=== PATIENT | male | born 1970 | race Caucasian/White ===

== ENCOUNTER 2016-09-15 10:31 | Outpatient (CLI) | payer BC ==
[2016-09-15 13:59] LABS: BASOPHILS % (AUTO) 0.6 %; EOSINOPHILS # (AUTO) 0.1 10^3/uL (0.0-0.7); EOSINOPHILS % (AUTO) 1.5 %; HCT - HEMATOCRIT 40.2 % (42.0-52.0); HGB - HEMOGLOBIN 13.7 g/dL (14.0-18.0); LYMPHOCYTES # (AUTO) 1.3 10^3/uL (1.5-3.5); LYMPHOCYTES % (AUTO) 25.3 %; MEAN CORPUSCULAR HEMOGLOBIN 28.1 pg (27.0-31.0); MEAN CORPUSCULAR HGB CONC 34.1 g/dL (32.0-36.0); MEAN CORPUSCULAR VOLUME 82.4 fL (80.0-94.0); MEAN PLATELET VOLUME 8.7 fL (7.4-11.4); MONOCYTES # (AUTO) 0.3 10^3/uL (0.0-1.0); MONOCYTES % (AUTO) 6.1 %; NEUTROPHILS # (AUTO) 3.4 10^3/uL (1.5-6.6); NEUTROPHILS % (AUTO) 66.5 %; NUCLEATED RED BLOOD CELLS AUTO 0.1 /100WBC; RED BLOOD COUNT 4.88 10^6/uL (4.70-6.10); RED CELL DISTRIBUTION WIDTH 14.2 % (12.0-15.0); UNCORRECTED WHITE BLOOD COUNT 5.1 x10^3/uL; WHITE BLOOD COUNT 5.1 x10^3/uL (4.8-10.8)
[2016-09-15 14:13] LABS: ALBUMIN/GLOBULIN RATIO 1.6 (1.0-2.2); BILIRUBIN,TOTAL 0.7 mg/dL (0.2-1.0); CALCIUM 9.3 mg/dL (8.5-10.3); CREATININE 1.1 mg/dL (0.6-1.2); POTASSIUM 4.1 mmol/L (3.5-5.0); TOTAL PROTEIN 7.7 g/dL (6.7-8.2)
== END 2016-09-15 10:32 | disposition home or self-care (01) ==
LOC: LAB.WCP 10:31
PROVIDERS: ATTEND Family Medicine
DX: N52.9 Male erectile dysfunction, unspecified (principal); E04.1 Nontoxic single thyroid nodule; R94.5 Abnormal results of liver function studies; I10 Essential (primary) hypertension
CPT/HCPCS: 36415; 80053; 84403; 84443; 85025

== ENCOUNTER 2020-02-09 23:50 | Outpatient (CLI) | payer BC | END 2020-02-09 23:51 | disposition critical access hospital (66) | LOC: EMS 23:50 | PROVIDERS: ATTEND Surgery | DX: R41.82 Altered mental status, unspecified (principal) | CPT/HCPCS: A0425; A0429 ==

== ENCOUNTER 2020-02-10 00:08 | Emergency (ER) | payer BC ==
--- NOTE | 2020-02-10 00:13 | ED Physician Documentation ---
PD HPI ALTERED MENTAL STATUS - Stated complaint Stated Complaint: AMS/ INGESTION - History obtained from History obtained from: Patient, Family ( (in ED in adjacent bed, also registered as patient for similar c/o)), EMS - History of Present Illness Timing - onset: Today Timing - details: Gradual onset Similar symptoms before: Has not had sx before Recently seen: Not recently seen - Additional information Additional information: BIBA for AMS. he is unable to provide any HPI or contribute to ROS due to AMS. per medic report and , patient and spouse used marijuana tonight, they have used before but this was a different type/concentration than they were used to. after a second dose, patient became increasingly drowsy. he is obtunded on my exam Review of Systems Unable to obtain: AMS PD PAST MEDICAL HISTORY - Past Medical History Past Medical History: No - Past Surgical History Past Surgical History: No - Present Medications Home Medications: Ambulatory Orders Medication Instructions Recorded Confirmed Sertraline HCl 100 mg PO DAILY 02/10/20 02/10/20 - Allergies Allergies/Adverse Reactions: Allergies Allergy/AdvReac Type Severity Reaction Status Date / Time No Known Drug Allergies Allergy Verified 02/10/20 00:22 - Social History Substance Use and Type: Marijuana PD ED PE NORMAL - Vitals Vital signs reviewed: Yes - General General: No acute distress, Well developed/nourished, Other (asleep, responds to pain. ) - HEENT HEENT: PERRL - Cardiac Cardiac: No murmur - Respiratory Respiratory: No respiratory distress, Clear bilaterally - Abdomen Abdomen: Soft, Non distended - Derm Derm: Normal color, Warm and dry PD ED PE EXPANDED - Cardiac Cardiac: Tachy, Regular Rhythm Results - Vitals Vitals: Oxygen O2 Source Room air PD MEDICAL DECISION MAKING - ED course Complexity details: re-evaluated patient, considered differential, d/w patient, d/w family ED course: after a few hours of observation in ED, patient gradually became increasingly more awake and alert and, on reevaluation prior to d/c, he is AAOx3, smiling, polite and cooperative. he corroborates the HPI given by and medics (used too much marijuana), he denies using any other substances, feels well and wants to go home Departure - Departure Disposition: 01 Home, Self Care Clinical Impression: Marijuana use Condition: Good Instructions: ED Altered Loc Discharge Date/Time: 02/10/20 05:42
[2020-02-10 05:43] VITALS: BP 128/78
== END 2020-02-10 05:42 | disposition home or self-care (01) ==
LOC: EDUNIT# → ED 00:08
DX: R41.82 Altered mental status, unspecified (principal)
CPT/HCPCS: 99281; 99283